=== PATIENT | female | born 1990 | race Caucasian/White ===

== ENCOUNTER 2018-10-13 02:01 | Emergency (ER) | payer OTHER ==
[2018-10-13] MEDS ORDERED: NS 1,000 ML IV ONE (02:18)
[2018-10-13] MEDS ORDERED: FAMOTIDINE 20 MG/2 ML SDV IVP ONE (02:18)
--- NOTE | 2018-10-13 02:25 | EDPHY ---
H & P Stated Complaint: Abdominal Pain N/V/D Time Seen by Provider: 10/13/18 02:09 HPI/ROS: Chief Complaint: Abdominal pain, vomiting, diarrhea HPI: 28-year-old woman began having nausea vomiting and abdominal pain 4 days ago. Patient seen by her primary care physician started on oral antiemetics. Nausea vomiting resolved and abdominal pain resolved however she began having diarrhea 2 days ago. She is having persistent epigastric abdominal pain which waxes and wanes. No further vomiting but is having diarrhea. No fevers or chills. No blood in her emesis. No dark tarry stools. No blood in her stools. No fevers or chills. No history of similar. She is currently on her menstrual cycle. ROS: 10 systems were reviewed and were negative except those elements noted in the HPI. PMH: Denies Social History: No smoking, no alcohol, no recreational drug use Family History: non-contributory Physical Exam: Gen: Awake, Alert, No Distress HEENT: Nose: no rhinorrhea Eyes: PERRLA, EOMI Mouth: Moist mucosa Neck: Supple, no JVD Chest: nontender, lungs clear to auscultation Heart: S1, S2 normal, no murmur Abd: Soft, mild epigastric abdominal pain, no guarding Back: no CVA tenderness, no midline tenderness Ext: no edema, non-tender Skin: no rash Neuro: CN II-XII intact, Sensation grossly intact, Strength 5/5 in bilateral upper and lower extremities - Personal History LMP (Females 10-55): 1-7 Days Ago Current Tetanus/Diphtheria Vaccine: Unsure Current Tetanus Diphtheria and Acellular Pertussis (TDAP): Unsure - Medical/Surgical History Hx Asthma: No Hx Chronic Respiratory Disease: No Hx Diabetes: No Hx Cardiac Disease: No Hx Renal Disease: No Hx Cirrhosis: No Hx Alcoholism: No Hx HIV/AIDS: No Hx Splenectomy or Spleen Trauma: No - Social History Smoking Status: Never smoked Constitutional: Initial Vital Signs Temperature (C) 36.6 C 10/13/18 02:05 Heart Rate 63 10/13/18 02:05 Respiratory Rate 18 10/13/18 02:05 Blood Pressure 127/91 H 10/13/18 02:05 O2 Sat (%) 99 10/13/18 02:05 O2 Delivery Mode Room Air Allergies/Adverse Reactions: No Known Allergies Allergy (Unverified 10/13/18 02:04) Home Medications: Medication Instructions Recorded NK [No Known Home Meds] 10/13/18 Medical Decision Making ED Course/Re-evaluation: Patient presents with epigastric pain and diarrhea. No lower abdominal tenderness. No relief with IV Pepcid. Labs are reassuring. Patient is improved after Toradol and morphine. Abdomen is soft and benign. Laboratory evaluations unremarkable. Symptoms consistent with gastroenteritis with possibly some gastritis. Will treat with [id number] famotidine. Follow up with primary care. - Data Points Laboratory Results: Laboratory Results 10/13/18 02:23 10/13/18 02:23 10/13/18 10/13/18 10/13/18 03:30 02:23 02:23 WBC RBC Hgb Hct MCV MCH MCHC RDW Plt Count MPV Neut % (Auto) Lymph % (Auto) [place] % (Auto) Eos % (Auto) Baso % (Auto) Nucleat RBC Rel Count Absolute Neuts (auto) Absolute Lymphs (auto) Absolute Monos (auto) Absolute Eos (auto) Absolute Basos (auto) Absolute Nucleated RBC Immature Gran % Immature Gran # Sodium 138 mEq/L mEq/L (135-145) Potassium 3.6 mEq/L mEq/L (3.5-5.2) Chloride 107 mEq/L mEq/L (97-110) Carbon Dioxide 22 mEq/l mEq/l (22-31) Anion Gap 9 mEq/L mEq/L (6-14) BUN 8 mg/dL mg/dL (7-23) Creatinine 0.6 mg/dL mg/dL (0.6-1.0) Estimated GFR > 60 Glucose 94 mg/dL mg/dL (70-100) Calcium 8.6 mg/dL mg/dL (8.5-10.4) Total Bilirubin 0.4 mg/dL mg/dL (0.1-1.4) AST 35 IU/L IU/L (14-46) ALT 66 IU/L H IU/L (9-52) Alkaline Phosphatase 72 IU/L IU/L (38-126) Total Protein 7.2 g/dL g/dL (6.3-8.2) Albumin 4.1 g/dL g/dL (3.5-5.0) Beta HCG, Qual NEGATIVE Urine Color PALE YELLOW Urine Appearance CLEAR Urine pH 7.0 (5.0-7.5) Ur Specific [place] 1.009 (1.002-1.030) Urine Protein NEGATIVE (NEGATIVE) Urine Ketones NEGATIVE (NEGATIVE) Urine Blood 2+ H (NEGATIVE) Urine Nitrate NEGATIVE (NEGATIVE) Urine Bilirubin NEGATIVE (NEGATIVE) Urine Urobilinogen NEGATIVE EU EU (0.2-1.0) Ur Leukocyte Esterase NEGATIVE (NEGATIVE) Urine RBC 1-3 /hpf /hpf (0-3) Urine WBC 1-3 /hpf /hpf (0-3) Ur Epithelial Cells NONE SEEN /lpf /lpf (NONE-1+) Urine Mucus TRACE /lpf /lpf (NONE-1+) Urine Glucose NEGATIVE (NEGATIVE) 10/13/18 02:23 WBC 8.50 10^3/uL 10^3/uL (3.80-9.50) RBC 4.91 10^6/uL 10^6/uL (4.18-5.33) Hgb 14.3 g/dL g/dL (12.6-16.3) Hct 43.2 % % (38.0-47.0) MCV 88.0 fL fL (81.5-99.8) MCH 29.1 pg pg (27.9-34.1) MCHC 33.1 g/dL g/dL (32.4-36.7) RDW 12.3 % % (11.5-15.2) Plt Count 231 10^3/uL 10^3/uL (150-400) MPV 10.0 fL fL (8.7-11.7) Neut % (Auto) 35.8 % L % (39.3-74.2) Lymph % (Auto) 54.5 % H % (15.0-45.0) Cedar % (Auto) 6.7 % % (4.5-13.0) Eos % (Auto) 2.4 % % (0.6-7.6) Baso % (Auto) 0.5 % % (0.3-1.7) Nucleat RBC Rel Count 0.0 % % (0.0-0.2) Absolute Neuts (auto) 3.05 10^3/uL 10^3/uL (1.70-6.50) Absolute Lymphs (auto) 4.63 10^3/uL H 10^3/uL (1.00-3.00) Absolute Monos (auto) 0.57 10^3/uL 10^3/uL (0.30-0.80) Absolute Eos (auto) 0.20 10^3/uL 10^3/uL (0.03-0.40) Absolute Basos (auto) 0.04 10^3/uL 10^3/uL (0.02-0.10) Absolute Nucleated RBC 0.00 10^3/uL 10^3/uL (0-0.01) Immature Gran % 0.1 % % (0.0-1.1) Immature Gran # 0.01 10^3/uL 10^3/uL (0.00-0.10) Sodium Potassium Chloride Carbon Dioxide Anion Gap BUN Creatinine Estimated GFR Glucose Calcium Total Bilirubin AST ALT Alkaline Phosphatase Total Protein Albumin Beta HCG, Qual Urine Color Urine Appearance Urine pH Ur Specific [place] Urine Protein Urine Ketones Urine Blood Urine Nitrate Urine Bilirubin Urine Urobilinogen Ur Leukocyte Esterase Urine RBC Urine WBC Ur Epithelial Cells Urine Mucus Urine Glucose Medications Given: Discontinued Medications Famotidine (Pepcid) 20 mg IVP EDNOW ONE Stop: 10/13/18 02:19 Last Admin: 10/13/18 02:27 Dose: 20 mg Sodium Chloride (Ns) 1,000 mls @ 0 mls/hr IV ONCE ONE; Wide Open PRN Reason: Protocol Stop: 10/13/18 02:19 Last Admin: 10/13/18 02:27 Dose: 1,000 mls Ketorolac Tromethamine (Toradol) 15 mg IVP EDNOW ONE Stop: 10/13/18 03:09 Last Admin: 10/13/18 03:10 Dose: 15 mg Morphine Sulfate (Morphine) 4 mg IVP ONCE ONE Stop: 10/13/18 03:45 Last Admin: 10/13/18 03:45 Dose: 4 mg Departure - Departure Disposition: Home, Routine, Self-Care Clinical Impression: Acute gastroenteritis, Abdominal pain Condition: Good Instructions: Acute Abdominal Pain (ED), Gastroenteritis (ED), Gastritis (ED) Additional Instructions: Start taking famotidine [id number] for upper abdominal pain. Adult pain control. Follow up with primary care physician in 2-3 days if symptoms are not improving. Return to the emergency department for worsening abdominal pain, nausea vomiting , fevers, chills, or any other concerns. Referrals: Roddy Herr MD [Medical Doctor] - As per Instructions
[2018-10-13 02:30] LABS: PLATELET COUNT 231 10^3/uL (150-400)
[2018-10-13] MEDS ORDERED: KETOROLAC 15 MG/1 ML SDV IVP ONE (03:08)
[2018-10-13 04:26] VITALS: BP 108/74
== END 2018-10-13 04:26 | disposition home or self-care (01) ==
DX: K52.9 Noninfective gastroenteritis and colitis, unspecified (principal); R10.0 Acute abdomen; E86.9 Volume depletion, unspecified
CPT/HCPCS: 96374; J1885; J2270